=== PATIENT | male | born 1985 | race Caucasian/White ===

== ENCOUNTER 2018-05-21 03:19 | Emergency (ER) | payer MEDICAID ==
[~2018-05-21] VITALS: Ht 177.8 cm; Wt 79.5 kg
[~2018-05-21 03:19] MED LIST: AMLO5TAB4 PO; AZIT500T5 PO; LEVO25TA7 PO; PANT-47 PO
[2018-05-21 03:24] VITALS: BP 147/92
== END 2018-05-21 04:45 | disposition left against medical advice (07) ==
LOC: ER 03:20
DX: M25.511 Pain in right shoulder (principal); Z53.21 Procedure and treatment not carried out due to patient leaving prior to being seen by health care provider

== ENCOUNTER → 2018-11-14 | Emergency (ER) | payer MEDICAID, OTHER ==
[~2018-11-14] VITALS: Ht 172.7 cm; Wt 70.2 kg
[2018-11-14 00:25] VITALS: BP 158/96
== END | disposition home or self-care (01) ==
LOC: ER 00:22
DX: R05 Cough (principal); R06.02 Shortness of breath; F15.90 Other stimulant use, unspecified, uncomplicated; Z88.0 Allergy status to penicillin
CPT/HCPCS: 93005; 99283

== ENCOUNTER 2024-10-29 20:14 | Emergency (ER) | payer MEDICAID ==
[~2024-10-29] VITALS: Ht 177.8 cm; Wt 89.4 kg
[~2024-10-29 20:14] MED LIST changes: -AZIT500T5 PO; +AZIT500T9 PO; +HYDR25TA4 PO
[2024-10-29 20:25] VITALS: BP 145/83; PULSE 99; RESP 17; TEMP 98.7; O2SAT 98
== END 2024-10-29 22:00 | disposition home or self-care (01) ==
LOC: ER 20:16
DX: B30.9 Viral conjunctivitis, unspecified (principal); I50.9 Heart failure, unspecified; F15.90 Other stimulant use, unspecified, uncomplicated; Z88.0 Allergy status to penicillin; Z79.899 Other long term (current) drug therapy; Z90.89 Acquired absence of other organs
CPT/HCPCS: 99282